=== PATIENT | male | born 1960 | race Caucasian/White ===

== ENCOUNTER 2020-04-25 00:23 | Inpatient (IN) | payer BC, OTHER ==
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
--- OUTSIDE RECORDS SUMMARY | 2020-04-25 00:27 | XMS REPORT | Continuity of Care Document ---
:1960 Author Organization [facility] Care Team Providers Name Role Phone [place] Group Information [place] [employer] Unavailable Un available Problems Problem Status Onset Classification Date Comments Sourc e Date Reported Coronary Active 09/27[facility]2012 [facility] Artery Disease Aftercare Active 09/27[facility]2012 [facility] Following Surgery Non-Healing Active 09/27/2012 [facility] Surgical Wound Medications Medication Details Route Status Patient Ordering Order Source Instructions Provider Date Lipitor 20 MG (Active) Active [facility] Prinivil 10 (Active) Active [facility] Tablet Plavix 75 MG (Active) Active [facility] Aspirin 81 MG (Active) Active [facility] Lopressor 50 (Active) Active [facility] Tablet Dulcolax (Active) Active [facility] Stool [facility] Softener CAPS Hiram 5-325 (Active) Active [facility] Tablet Allergies, Adverse Reactions, Alerts No Known Medication Allergies Immunizations No Data Provided for This Section Results No Data Provided for This Section Pathology Reports No Data Provided for This Section Diagnostic Reports No Data Provided for This Section Consultation Notes No Data Provided for This Section Discharge Summaries No Data Provided for This Section History and Physicals No Data Provided for This Section Vital Signs No Data Provided for This Section Encounters Location Location Encounter Encounter Reason Attending ADM PR Stat Source Details Type Number For Provider Date Date Visit AUDIT [id number] 09/22 [facility]icians AUDIT [id number] 09/26 [facility] Procedures No Data Provided for This Section Assessment and Plan No Data Provided for This Section Plan of Care No Data Provided for This Section Social History Social History Date Source Former Smoker (V15.82); 09/27/2012 [facility] (Active) Being A Social Drinker (Active) Family History No Data Provided for This Section Advance Directives Order Name Results Value Date Source Advance Directives Advance Directives No Advance 09/27/2012 [facility] Directives available. Advance Directives Advance Directives No Advance 09/23/2012 [facility] Directives available. Functional Status No Data Provided for This Section
--- OUTSIDE RECORDS SUMMARY | 2020-04-25 00:27 | XMS REPORT | Continuity of Care Document ---
:1960 Author Organization [facility] Address [address] [place] [address] Care Team Providers Name Role Phone Mayra MARTINEZ, Tino Primary Care Physician Adolfo Sutherland MD Attending Clinician Austin MARTINEZ Attending Clinician Payers Payer Name Policy Type Policy Effective Date Expiration Date Sour ce Number [facility] [id number] 2019 [place] CHO[place] 00:00:00 Religion EXCHANGECOM [facility] EXCHANGE MARKETPLACExxxxxx [id number] esentExchange Problems Condition Condition Condition Status Onset Resolution Last Treating Co mments Source Name Details Category Date Date Treatment Clinician Date Essential Essential Disease Active Kellen ston hypertensi hypertensi 6-26 Me thodi on on 00:00: st 00 Ileostomy Ileostomy Disease Active 2016-06 Kellen ston status status 0-25 Methodi 00:00: st 00 Diverticul Diverticul Disease Active [place] itis of itis of 9-19 Methodi colon colon 00:00: st 00 Coronary Problem Active 2012-09-27 Mem oria Artery 02:03:03 l Disease Coronary Juanita nn Artery Disease Active 3 [facility] Aftercare Problem Active 2012-09-27 Me moria Following 02:03:03 l Surgery Prabhjot Aftercare Following Surgery Active 3 [facility] Non-Healin Problem Active 2012-09-27 M emoria g Surgical 02:03:03 l Wound [place] Non-Healin g Surgical Wound Active 3 [facility] Allergies, Adverse Reactions, Alerts This patient has no known allergies or adverse reactions. Family History Family Member Diagnosis Comments Start Date Stop Date Source Natural father Hypertension [facility] Religion Natural mother Hypertension [facility] Social History Social Habit Start Date Stop Date Quantity Comments Source History of tobacco Current smoker Jordan talbot Religion use Sex Assigned At [facility] ethodist Cigarettes smoked 2017-05-25 2017-05-25 [facility] Religion current (pack per 00:00:00 00:00:00 day) - Reported Cigarette 2017-05-25 2017-05-25 Lilly Method ist pack-years 00:00:00 00:00:00 Tobacco use and 2017-05-25 2017-05-25 Never used [facility] ethodist exposure 00:00:00 00:00:00 Alcohol intake 2017-05-25 2017-05-25 Current drinker [place] Religion 00:00:00 00:00:00 of alcohol (finding) Alcohol Comment 2017-03-12 2017-03-12 social [facility] ethodist 00:00:00 00:00:00 Social History 2012-09-27 2012-09-27 [facility] 02:03:03 02:03:03 Smoking Status Start Date Stop Date Source Former smoker 2017-05-25 00:00:00 2017-05-25 00:00:00 [facility] Medications Ordered Filled Start Stop Current Ordering Indication Dosage Frequency Signature Comments Components Source Medication Medication Date Date Medication? Clinician (SIG) Name Name lisinopril 2016-06 Yes 20mg QD Take 20 mg [place] (PRINIVIL,Z 0-27 by mouth Meth yvonne ESTRIL) 10 15:54: every st mg tablet 01 morning. metoprolol 2016-06 Yes 50mg QD Take 50 mg [place] tartrate 0-27 by mouth Methodi (LOPRESSOR) 15:54: every st 50 mg 01 morning. tablet atorvastati 2016-06 Yes 20mg QD Take 20 mg Da Silva n (LIPITOR) 0-27 by mouth Meth yvonne 20 MG 15:54: every st tablet 01 morning. Default OP ins aspirin 2016-06 Yes 81mg QD Take 81 mg [place] (ECOTRIN) 0-27 by mouth Method i 81 MG 15:54: daily. st enteric 01 coated tablet omeprazole 2016-06 Yes 20mg Q24H Take 20 mg [place] (PriLOSEC) 0-27 by mouth Metho di 20 MG 15:54: daily as st capsule 01 needed. Lipitor 20 Yes (Active) Me moria MG Oral 4-02 l Tablet 02:03: Prabhjot 03 Prinivil 10 Yes (Active) M emoria MG Oral 4-02 l Tablet 02:03: Prabhjot 03 Plavix 75 Yes (Active) Mem oria MG Oral 4-02 l Tablet 02:03: [place] 03 Aspirin 81 Yes (Active) Me moria MG Oral 4-02 l Tablet 02:03: Prabhjot 03 Lopressor Yes (Active) Mem oria 50 MG Oral 4-02 l Tablet 02:03: Prabhjot 03 Dulcolax Yes (Active) Ned nichole Stool 4-02 l Softener 02:03: Prabhjot CAPS 03 [place] 5-325 Yes (Active) M emoria MG Oral 4-02 l Tablet 02:03: [place] 03 Immunizations Ordered Immunization Filled Immunization Date Status Commen Source Name Name Pneumococcal 2017-03-24 Completed [facility] Conjugate 13-Valent 00:00:00 Metho dist FLUCELVAX QUAD PF 2017-03-24 Completed Lilly 00:00:00 Religion Procedures This patient has no known procedures. Plan of Care Planned Activity Planned Date Details Comments Source Future Scheduled 2020-01-27 INFLUENZA VACCINE [place] Religion Test 00:00:00 [code = INFLUENZA VACCINE] Future Scheduled 2009 [address]OS[address]EN[address] [facility] Religion Test 00:00:00 [code = COLONOSCOPY SCREENING] Future Scheduled 2009 SHINGLES VACCINES [place] Religion Test 00:00:00 (#1) [code = SHINGLES VACCINES (#1)] Encounters Start End Encounter Admission Attending Care Care Encounter Source Date/Time Date/Time Type Type Clinicians Facility Department ID 2019-02-01 2019-02-01 Office SOWMYA Avila [id number] 11:08:00 11:56:32 Visit Kareem Chapman [id number] Ezequiel [id number] Anna [id number] formerly [facility] 2012-09-26 2012-09-26 Outpatient KORY HORN [id number] 21:03:21 21:03:03 2012-09-22 2012-09-22 Outpatient [facility] [id number] 21:26:12 21:25:54 Results This patient has no known results.
[2020-04-25] MEDS ORDERED: HEPARIN 5000 UNIT/ML 1 ML VIAL ONE ×4 (01:08→14:35)
[2020-04-25] MEDS ORDERED: NA CHLORIDE 0.9% 1,000 ML ONE ×3 (01:08→14:52)
[2020-04-25] MEDS ORDERED: HEPARIN/D5W 25,000 UNIT/500 ML BAG IV ONE (01:09)
[2020-04-25] MEDS ORDERED: ASPIRIN 81 MG CHEWABLE TABLET ONE (01:10)
[2020-04-25] MEDS ORDERED: METOPROLOL TARTRATE 5 MG/5 ML INJ IV ONE ×2 (01:16→01:37)
[2020-04-25 01:17] LABS: Protime INR 0.96
[2020-04-25 01:23] LABS: Absolute Lymphocytes (CBC) 3.2 K/uL (0.7-4.9); Basophils % 1.2 % (0-1.3); Hematocrit 41.9 % (39.6-49.0); Lymphocytes % 31.5 % (15.3-44.8); MPV 8.6 fL (7.6-11.3); RBC Red Blood Cell Count 5.02 M/uL (4.33-5.43)
[2020-04-25 01:26] LABS: ALT/SGPT 29 U/L (12-78); AST/SGOT 21 U/L (15-37); Albumin 3.7 g/dL (3.4-5.0); Alkaline Phosphatase 77 U/L (45-117); BUN Blood Urea Nitrogen 21 mg/dL (7-18); Bicarbonate 26 mmol/L (21-32); Bilirubin Direct < 0.1 mg/dL (0-0.2); Bilirubin Total 0.2 mg/dL (0.2-1.0); Glucose Level 162 mg/dL (74-106); Magnesium 1.9 mg/dL (1.8-2.4); NT PRO-BNP 403 pg/mL (<125); Potassium 3.5 mmol/L (3.5-5.1); Protein, Total 7.9 g/dL (6.4-8.2); Sodium Level 136 mmol/L (136-145); Troponin (Emerg Dept Use Only) 0.79 ng/mL (0.0-0.045)
--- NOTE | 2020-04-25 01:35 | EDPHYS ---
Physician Documentation [facility] Name: Nixon Dela Cruz Age: 59 yrs Sex: Male : 1960 Arrival Date: 04/25/2020 Time: 00:26 Bed 5 Private MD: ED Physician Adeel Oliveira HPI: 04/25 01:21 This 59 yrs old Male presents to ER via Ambulatory with complaints of Chest pkl Pain, High Blood Pressure. 01:21 The patient or guardian reports chest pain that is located primarily in the substernal pkl area. Onset: today, 6 hour(s) ago. The pain radiates to back. Associated signs and symptoms: Pertinent positives: diaphoresis, shortness of breath. The chest pain is described as a pressure. Historical: - Allergies: 00:40 No Known Allergies; rv - PMHx: 00:40 abdominal aortic aneurysm; Diabetes - NIDDM; Diverticulitis; Hypertension; rv - PSHx: 00:40 CABG; Cholecystectomy; rv - Immunization history:: Adult Immunizations up to date. - Social history:: Smoking status: Patient denies any tobacco usage or history of. Patient uses street drugs, marijuana. ROS: 01:21 Eyes: Negative for injury, pain, redness, and discharge, ENT: Negative for injury, pkl pain, and discharge, Neck: Negative for injury, pain, and swelling. 01:21 Cardiovascular: Positive for chest pain, palpitations. 01:21 Respiratory: Positive for shortness of breath. 01:21 Abdomen/GI: Negative for abdominal pain, nausea, vomiting, and diarrhea. 01:21 Back: Negative for pain at rest. 01:21 : Negative for urinary symptoms. 01:21 MS/extremity: Negative for acute changes. 01:21 Skin: Positive for diaphoresis. 01:21 Neuro: Negative for altered mental status, loss of consciousness. Exam: 01:21 Head/Face: Normocephalic, atraumatic. Eyes: Pupils equal round and reactive to light, pkl extra-ocular motions intact. Lids and lashes normal. Conjunctiva and sclera are non-icteric and not injected. Cornea within normal limits. Periorbital areas with no swelling, redness, or edema. ENT: Nares patent. No nasal discharge, no septal abnormalities noted. Tympanic membranes are normal and external auditory canals are clear. Oropharynx with no redness, swelling, or masses, exudates, or evidence of obstruction, uvula midline. Mucous membranes moist. Neck: Trachea midline, no thyromegaly or masses palpated, and no cervical lymphadenopathy. Supple, full range of motion without nuchal rigidity, or vertebral point tenderness. No Meningismus. Chest/axilla: Normal chest wall appearance and motion. Nontender with no deformity. No lesions are appreciated. 01:21 Cardiovascular: Rate: tachycardic, actual rate is 131 bpm, Rhythm: irregularly irregular. 01:21 ECG was reviewed by the Attending Physician. 01:21 Respiratory: the patient does not display signs of respiratory distress, Respirations: normal, Breath sounds: are clear throughout. 01:21 Abdomen/GI: Bowel sounds: normal, Palpation: abdomen is soft and non-tender, in all quadrants. 01:21 Back: Exam negative for acute changes. 01:21 : Exam negative for acute changes. 01:21 Musculoskeletal/extremity: Exam is negative for acute changes. 01:21 Skin: Exam negative for rash. 01:21 Neuro: Orientation: is normal, Mentation: is normal, Cranial nerves: grossly normal, Motor: is normal. Vital Signs: 00:37 BP 134 / 87; Pulse 136; Resp 18; Pulse Ox 99% ; Weight 108.86 kg; Height 6 ft. (182.88 rv cm); Pain 5/10; 00:52 Temp 98.1(O); Weight 112.31 kg (M); rv 01:10 BP 111 / 92; Pulse 124; Resp 18; Pulse Ox 98% on R/A; rv 01:20 BP 111 / 90; Pulse 60; Resp 17; Pulse Ox 99% on R/A; rv 01:23 BP 108 / 76; Pulse 137; Resp 18; Pulse Ox 97% on R/A; rv 02:00 BP 121 / 82; Pulse 101 MON; Resp 17; Pulse Ox 98% on R/A; rv 02:20 BP 109 / 79; Pulse 100; Resp 17; Pulse Ox 98% on R/A; rv 02:40 BP 122 / 88; Pulse 101; Resp 17; Temp 98; Pulse Ox 99% on R/A; rv 03:23 BP 107 / 86; Pulse 100; Resp 18; Pulse Ox 98% ; rv 00:52 Body Mass Index 33.58 (112.31 kg, 182.88 cm) rv 02:00 A fib rv 02:20 A fib rv 02:40 A fib rv MDM: 00:27 Patient medically screened. pkl 01:21 Data reviewed: vital signs, nurses notes, lab test result(s), EKG, radiologic studies, pkl plain films. 01:30 ED course: Patient feeling better. No chest pain at this time. Talked to arthur Trejo admit to ICU ( Dr. Rutherford ). 04/25 00:51 Order name: Basic Metabolic Panel; Complete Time: : rv 04/25 00:51 Order name: CBC with Diff; Complete Time: rv 04/25 00:51 Order name: LFT's; Complete Time: rv 04/25 00:51 Order name: Magnesium; Complete Time: rv 04/25 00:51 Order name: NT PRO-BNP; Complete Time: rv 04/25 00:51 Order name: PT-INR; Complete Time: rv 04/25 00:51 Order name: Troponin (emerg Dept Use Only); Complete Time: rv 04/25 00:51 Order name: XRAY Chest (1 view) rv 04/25 01:12 Order name: PTT, Activated Partial Thromb; Complete Time: EDMS 04/25 01:21 Order name: Glucose, Ancillary Testing; Complete Time: EDMS 04/25 02:57 Order name: SARS-COV-2 RT PCR; Complete Time: 03:00 EDMS 04/25 00:51 Order name: EKG; Complete Time: 00:52 rv 04/25 00:51 Order name: Cardiac monitoring; Complete Time: 00:51 rv 04/25 00:51 Order name: EKG - Nurse/Tech; Complete Time: 00:52 rv 04/25 00:51 Order name: IV Saline Lock; Complete Time: 00:52 rv 04/25 00:51 Order name: Labs collected and sent; Complete Time: 00:52 rv 04/25 00:51 Order name: O2 Per Protocol; Complete Time: 00:52 rv 04/25 00:51 Order name: O2 Sat Monitoring; Complete Time: 00:52 rv Administered Medications: 00:55 Drug: Heparin (MS Drip) 12 units/kg/hr - (HEParin 23904 units, D5W 500 ml) rv {Co-Signature: sg (Leo Cruz RN).} Route: IV; Rate: calculated rate; Site: right antecubital; 02:57 Follow up: IV Status: Infusion continued upon admission rv 00:55 Drug: Heparin (MS-Bolus No thrombolytic) - HEParin 60 units/kg {Co-Signature: tamika rv (Leo Cruz RN).} Route: IVP; Site: right antecubital; 02:57 Follow up: Response: No adverse reaction rv 00:55 Drug: Aspirin Chewable Tablet 162 mg Route: PO; bb 02:57 Follow up: Response: No adverse reaction rv 01:00 Drug: Metoprolol 5 mg Route: IVP; Site: right antecubital; rv 01:10 Drug: Metoprolol 5 mg Route: IVP; Site: right antecubital; rv 01:25 Drug: Metoprolol 5 mg Route: IVP; Site: left antecubital; rv 01:47 Follow up: Response: Cardiac rhythm changed rv 02:51 Drug: PlaVIX 300 mg Route: PO; rv 02:57 Follow up: Response: Medication administered at discharge. rv 02:51 Drug: Atorvastatin 40 mg Route: PO; rv 02:57 Follow up: Response: Medication administered at discharge. rv 02:57 Drug: NS 0.9% 500 ml Route: IV; Rate: bolus; Site: right antecubital; rv 02:57 Follow up: IV Status: Infusion continued upon admission rv Disposition: 01:30 Critical Care:. [facility] Disposition: 04/25/20 01:34 Hospitalization ordered by Bert Rutherford for Inpatient Admission. Preliminary diagnosis is Acute M. I. Atrial fibrillation with RVR. - Bed requested for Intensive Care Unit. - Status is Inpatient Admission. rv - Condition is Stable. - Problem is new. - Symptoms have improved. Signatures: Dispatcher [employer] Leo Bella RN RN sg Lam, Pin, MD MD pkl Ballard, Brenda, RN RN Arya Vasquez, LOAN COUNSELOR-C LOAN COUNSELOR-Cla1 Harsh Arreguin RN RN rv Leo Cruz RN sg Corrections: (The following items were deleted from the chart) 01:11 00:57 PTT, ACTIVATED+COAG.LAB.BRZ ordered. EDMS EDMS 01:32 01:09 CORONAVIRUS+MR.LAB.BRZ ordered. EDMS EDMS 03:24 01:34 Hospitalization Ordered by Bert Rutherford DO for Inpatient Admission. Preliminary rv diagnosis is Acute M. I. Atrial fibrillation with RVR. Bed requested for Intensive Care Unit. Status is Inpatient Admission. Condition is Stable. Problem is new. Symptoms have improved. pkl
--- NOTE | 2020-04-25 01:35 | ER ---
Nurse's Notes [facility] Name: Nixon Dela Cruz Age: 59 yrs Sex: Male : 1960 Arrival Date: 04/25/2020 Time: 00:26 Bed 5 Private MD: Diagnosis: Acute M. I. Atrial fibrillation with RVR Presentation: 04/25 00:37 Chief complaint: Patient states: CHEST PAIN STARTED AT ABOUT 530 AFTER EATING. WITH rv SOB. DESCRIBED IT TIGHTNESS, 5/10 PAIN SCALE, CONTINUOUS, WHICH RADIATES TO THE BACK. WITH HISTORY OF FEVER TWO DAYS BEFORE. Coronavirus screen: Client denies travel out of the [place] in the last 14 days. nausea, shortness of breath, Client presents with at least one sign or symptom that may indicate coronavirus-19. Standard/surgical mask placed on the client. Provider contacted for isolation considerations. Ebola Screen: No symptoms or risks identified at this time. Initial Sepsis Screen: Does the patient meet any 2 criteria? No. Patient's initial sepsis screen is negative. Does the patient have a suspected source of infection? No. Patient's initial sepsis screen is negative. Risk Assessment: Do you want to hurt yourself or someone else? Patient reports no desire to harm self or others. Onset of symptoms was April 24, 2020 at 17:30. 00:37 Method Of Arrival: Ambulatory rv 00:37 Acuity: SNEHA 2 rv Triage Assessment: 00:40 General: Appears uncomfortable, Behavior is calm, cooperative. Pain: Complains of pain rv in chest Pain radiates to back. EENT: No signs and/or symptoms were reported regarding the EENT system. Neuro: Level of Consciousness is awake, alert, obeys commands, Oriented to person, place, time, situation. Cardiovascular: Reports chest pain, nausea, palpitations, Patient's skin is warm and dry. Rhythm is sinus tachycardia Chest pain is described as mild, quality is TIGHTNESS is located in anterior chest wall radiates back began 1730. Respiratory: Airway is patent Respiratory effort is even, unlabored, Breath sounds are clear bilaterally. Derm: Skin is intact. Historical: - Allergies: 00:40 No Known Allergies; rv - PMHx: 00:40 abdominal aortic aneurysm; Diabetes - NIDDM; Diverticulitis; Hypertension; rv - PSHx: 00:40 CABG; Cholecystectomy; rv - Immunization history:: Adult Immunizations up to date. - Social history:: Smoking status: Patient denies any tobacco usage or history of. Patient uses street drugs, marijuana. Screenin:43 Abuse screen: Denies threats or abuse. Denies injuries from another. Nutritional rv screening: No deficits noted. Tuberculosis screening: No symptoms or risk factors identified. Fall Risk None identified. Assessment: 00:43 Pain: Pain began 1730. rv 01:43 Reassessment: chest pain is resolving. rhythm converts to sinus laisha after three doses rv of lopressor. series of EKG done as ordered. General: Appears comfortable, Behavior is calm, cooperative. Pain: Denies pain. Pain: Complains of pain in chest. Pain: Pain radiates to back. Neuro: Level of Consciousness is awake, alert, obeys commands, Oriented to person, place, time, situation. Cardiovascular: Rhythm is sinus bradycardia with unifocal PVCs. 01:44 Reassessment: Patient appears in no apparent distress at this time. Patient is alert, sg oriented x 3, equal unlabored respirations, skin warm/dry/pink. Arya FILLER SHREDDING MACHINE LOADER at bedside assessing pt for admission at this time Patient denies pain at this time. Patient states feeling better. Patient states symptoms have improved. Vital Signs: 00:37 BP 134 / 87; Pulse 136; Resp 18; Pulse Ox 99% ; Weight 108.86 kg; Height 6 ft. (182.88 rv cm); Pain 5/10; 00:52 Temp 98.1(O); Weight 112.31 kg (M); rv 01:10 BP 111 / 92; Pulse 124; Resp 18; Pulse Ox 98% on R/A; rv 01:20 BP 111 / 90; Pulse 60; Resp 17; Pulse Ox 99% on R/A; rv 01:23 BP 108 / 76; Pulse 137; Resp 18; Pulse Ox 97% on R/A; rv 02:00 BP 121 / 82; Pulse 101 MON; Resp 17; Pulse Ox 98% on R/A; rv 02:20 BP 109 / 79; Pulse 100; Resp 17; Pulse Ox 98% on R/A; rv 02:40 BP 122 / 88; Pulse 101; Resp 17; Temp 98; Pulse Ox 99% on R/A; rv 03:23 BP 107 / 86; Pulse 100; Resp 18; Pulse Ox 98% ; rv 00:52 Body Mass Index 33.58 (112.31 kg, 182.88 cm) rv 02:00 A fib rv 02:20 A fib rv 02:40 A fib rv ED Course: 00:26 Patient arrived in ED. cl3 00:27 Harsh Arreguin, KELLY is Primary Nurse. rv 00:27 Adeel Oliveira MD is Attending Physician. pkl 00:39 Triage completed. rv 00:40 Initial lab(s) drawn, by me, sent to lab. Inserted saline lock: 18 gauge in right sg antecubital area, using aseptic technique. Blood collected. 00:42 Arm band placed on right wrist. Patient placed in the treatment room, on a stretcher, rv Patient notified of wait time. 00:42 No provider procedures requiring assistance completed. Patient maintains SpO2 rv saturation greater than 95% on room air. 00:43 Patient has correct armband on for positive identification. Bed in low position. Call rv light in reach. Side rails up X 1. certified nurse on. Pulse ox on. NIBP on. 00:46 Called cardiology answering service. Waiting for donor services specialist planning assistant to call back. ar5 01:09 Missed attempt(s): 20 gauge in left antecubital area. Bleeding controlled, band aid sg applied, catheter tip intact. Missed attempt(s): 20 gauge in left wrist. Bleeding controlled, band aid applied, catheter tip intact. 01:15 Inserted saline lock: 18 gauge in left antecubital area, using aseptic technique. rv 01:[address] Oliveira to call cardiology answering service and cancel consult to planning assistant. ar5 01:26 Notified ED physician of a critical lab result(s). troponin of 0.79 Dr Oliveira notified. bb 01:30 COVID swab sent to lab, Sandro notified for Inhouse test due to pt pending sg transfer/admission dispo, will continue to monitor. 01:33 Bert Rutherford DO is Hospitalizing Provider. pkl 03:00 IV is patent, with fluids infusing freely, Patient admitted, IV remains in place. rv Administered Medications: 00:55 Drug: Heparin (NE Drip) 12 units/kg/hr - (HEParin 66031 units, D5W 500 ml) rv {Co-Signature: sg (Leo Cruz RN).} Route: IV; Rate: calculated rate; Site: right antecubital; 02:57 Follow up: IV Status: Infusion continued upon admission rv 00:55 Drug: Heparin (NE-Bolus No thrombolytic) - HEParin 60 units/kg {Co-Signature: tamika rv (Leo Cruz RN).} Route: IVP; Site: right antecubital; 02:57 Follow up: Response: No adverse reaction rv 00:55 Drug: Aspirin Chewable Tablet 162 mg Route: PO; bb 02:57 Follow up: Response: No adverse reaction rv 01:00 Drug: Metoprolol 5 mg Route: IVP; Site: right antecubital; rv 01:10 Drug: Metoprolol 5 mg Route: IVP; Site: right antecubital; rv 01:25 Drug: Metoprolol 5 mg Route: IVP; Site: left antecubital; rv 01:47 Follow up: Response: Cardiac rhythm changed rv 02:51 Drug: PlaVIX 300 mg Route: PO; rv 02:57 Follow up: Response: Medication administered at discharge. rv 02:51 Drug: Atorvastatin 40 mg Route: PO; rv 02:57 Follow up: Response: Medication administered at discharge. rv 02:57 Drug: NS 0.9% 500 ml Route: IV; Rate: bolus; Site: right antecubital; rv 02:57 Follow up: IV Status: Infusion continued upon admission rv Outcome: 01:34 Decision to Hospitalize by Provider. pkl 03:00 Admitted to ICU accompanied by nurse, via stretcher, room bed 9 ER ICU, Other SBAR, EKG rv 03:00 Condition: good 03:00 Instructed on the need for admit. 03:24 Patient left the ED. rv Signatures: Leo Cruz RN RN sg Adeel Oliveira MD MD pkl Sandra Zamora RN RN bb Harsh Arreguin RN RN rv Razia Rehman ar5 Sabiha Pastor cl3 Leo Cruz RN sg Corrections: (The following items were deleted from the chart) 01:43 00:43 Pain: Pain began 173 rv rv
[2020-04-25] MEDS ORDERED: CLOPIDOGREL 75 MG TABLET ONE ×3 (03:01→14:05)
[2020-04-25] MEDS ORDERED: HEPARIN/D5W 25,000 UNIT/500 ML BAG IV SCH (03:03)
[2020-04-25] MEDS ORDERED: NITROGLYCERIN 0.4 MG/TAB SL PRN (03:03)
[2020-04-25] MEDS ORDERED: ACETAMINOPHEN 500 MG TAB PO PRN (03:03)
[2020-04-25] MEDS ORDERED: MORPHINE 2 MG/ML SYR IV PRN (03:03)
[2020-04-25] MEDS: NA CHLORIDE 0.9% 1,000 ML IV SCH ×2 (03:03→13:03)
[2020-04-25] MEDS ORDERED: ONDANSETRON 4 MG/2 ML VIAL IV PRN (03:03)
[2020-04-25] MEDS ORDERED: ATORVASTATIN 20 MG TAB ONE (03:05)
--- NOTE | 2020-04-25 03:09 | P.HP ---
Certification for Inpatient Patient admitted to: Inpatient With expected LOS: >2 Midnights Patient will require the following post-hospital care: None Practitioner: I am a practitioner with admitting privileges, knowledge of patient current condition, hospital course, and medical plan of care. Services: Services provided to patient in accordance with Admission requirements found in Title 42 Section 412.3 of the Code of Federal Regulations <Arya Keller - Last Filed: 04/25/20 03:02> Patient History Date of Service: 04/25/20 Primary Care Provider: Cardiology- Allie Reason for admission: NSTEMI History of Present Illness: 59-year-old male with history of aortic aneurysm with repair, coronary artery disease s/p three-vessel CABG in 2012, diabetes mellitus type 2, hypertension, hyperlipidemia, depression with anxiety presents emergency department for chest pain. Patient reports he has been having intermittent chest pain associated with exertion over the course of the last few years. Patient reports that after eating dinner at around 6:00 p.m. last night patient had significant chest tightness radiating to the back with associated diaphoresis, nausea, shortness of breath. Patient reports that this pain lasted for approximately 30 min at this severity but did begin to taper off. Upon presentation to the emergency department patient was still experiencing some mild chest pain with shortness of breath even just walking to the ER doors. Initial EKG showed AFib RVR with a rate of 138. Patient was given metoprolol 5 mg IV x3 which did control the rate, patient is still in AFib with a rate of around 100. Repeat EKG shows no acute ST elevation. Initial troponin 0.79. Labs also remarkable for mild a KI with creatinine 1.38, GFR 53, BUN 21. BNP also elevated at 403. Patient was started on heparin drip with bolus for AMI and given aspirin. When I saw the patient in the emergency department he was awake, alert, oriented x3. Heart rate AFib intermittently labile anywhere from 130 to AFib slow ventricular response with a rate of around 40. Patient is chest pain-free at this time. Hospitalist attending and cardiology spoken with regarding patient. Cardiology once patient on clear liquid diet for likely afternoon intervention and loaded with 300 mg Plavix p.o.. Patient was admitted to the intensive care unit for close monitoring overnight. - Past Medical/Surgical History Has patient received pneumonia vaccine in the past: No Diabetic: Yes -: CAD s/p three-vessel CABG -: Aortic aneurysm with repair -: Diabetes mellitus type 2 -: Hyperlipidemia -: Hypertension -: Aortic aneurysm repair with mesh -: Three-vessel CABG -: Right shoulder surgery Psychosocial/ Personal History: Patient lives with his - Family History Father -: Heart disease Notes: Reported to have had 26 myocardial infarction starting at the age of 29 - Social History Smoking Status: Former smoker Alcohol use: Yes CD- Drugs: No Caffeine use: Yes Place of Residence: Home <Arya Keller - Last Filed: 04/25/20 03:02> Date of Service: 04/25/20 Home medications list reviewed: Yes <Bert Rutherford - Last Filed: 04/25/20 09:25> Allergies No Known Allergies Allergy (Verified 04/25/20 04:49) Review of Systems 10-point ROS is otherwise unremarkable Respiratory: SOB with Excertion Cardiovascular: Chest Pain, Other (Diaphoresis), As per HPI <Arya Keller - Last Filed: 04/25/20 03:02> Physical Examination - Physical Exam General: Alert, In no apparent distress HEENT: Atraumatic, PERRLA, Mucous membr. moist/pink Neck: Supple, 2+ carotid pulse no bruit, No LAD Respiratory: Clear to auscultation bilaterally, Normal air movement Cardiovascular: Regular rate/rhythm, Normal S1 S2 Gastrointestinal: Normal bowel sounds, No tenderness Musculoskeletal: No tenderness Integumentary: No rashes Neurological: Normal speech, Normal strength at 5/5 x4 extr, Normal tone, Normal affect - Studies Laboratory Data (last 24 hrs) 04/25/20 00:56: APTT Cancelled 04/25/20 00:40: PT 11.3, INR 0.96, APTT 32.5 04/25/20 00:40: WBC 10.2, Hgb 14.4, Hct 41.9, Plt Count 343 04/25/20 00:40: Sodium 136, Potassium 3.5, BUN 21 H, Creatinine 1.38 H, Glucose 162 H, Magnesium 1.9, Total Bilirubin 0.2, AST 21, ALT 29, Alkaline Phosphatase 77 <Arya Keller - Last Filed: 04/25/20 03:02> - Studies Laboratory Data (last 24 hrs) 04/25/20 00:56: APTT Cancelled 10/29/20 00:40: PT 11.3, INR 0.96, APTT 32.5 04/25/20 00:40: WBC 10.2, Hgb 14.4, Hct 41.9, Plt Count 343 04/25/20 00:40: Sodium 136, Potassium 3.5, BUN 21 H, Creatinine 1.38 H, Glucose 162 H, Magnesium 1.9, Total Bilirubin 0.2, AST 21, ALT 29, Alkaline Phosphatase 77 <Bert Rutherford - Last Filed: 04/25/20 09:25> Assessment and Plan - Plan Assessment Non ST elevation myocardial infarction New onset atrial fibrillation with rapid ventricular response Diabetes mellitus type 2 Hypertension Hyperlipidemia Coronary artery disease s/p three-vessel CABG Plan Non ST elevation myocardial infarction: Cardiology consulted and patient discussed. Continue with heparin drip, aspirin, Plavix, atorvastatin, beta- livia, p.r.n. nitro and morphine. Plan for PCI this afternoon, clear liquid diet at this time. Lipid panel with morning. Monitor on telemetry, admitted to the intensive care unit. New onset atrial fibrillation with rapid ventricular response: Likely related to above, continue with oral beta livia, monitor on telemetry. P.r.n. IV metoprolol for rate control. Echocardiogram ordered. Appreciate further input from cardiology. Patient on heparin drip for anticoagulation. Thyroid panel ordered for morning labs. Diabetes mellitus type 2: A.c. HS Accu-Cheks, sliding scale insulin therapy, obtain A1c with morning labs. Hypertension: Patient previously on metoprolol and stopped taking, re-initiate beta-livia therapy, obtain and continue home medications as appropriate. Hyperlipidemia: Patient stopped taking his atorvastatin, re-initiate statin therapy. Lipid panel with morning labs. Coronary artery disease s/p three-vessel CABG: Patient previously on Plavix, this was discontinued. Patient now back on Plavix at this time. Plan for PCI tomorrow. Discharge Plan: Home Plan to discharge in: 48 Hours - Advance Directives Does patient have a Living Will: No Does patient have a Durable POA for Healthcare: No - Code Status/Comfort Care Code Status Assessed: Yes (Full code) Critical Care: No Time Spent Managing Pts Care (In Minutes): 70 <Arya Keller - Last Filed: 04/25/20 03:02> - Plan Case discussed in detail with nurse practitioner. Agree with evaluation, and plan of care. Case discussed with cardiology. Cardiology plans for heart catheterization today to further evaluate. Patient converted to normal sinus rhythm early this morning. Continue with beta-livia therapy. Patient on heparin drip at this time. Please see progress note for details. <Bert Rutherford - Last Filed: 04/25/20 09:25>
[2020-04-25 04:13] VITALS: BMI 33.5
[2020-04-25] MEDS: METOPROLOL TAR 25 MG TAB PO SCH ×2 (05:37→18:16)
[2020-04-25 06:06] LABS: Absolute Lymphocytes (CBC) 3.7 K/uL (0.7-4.9); Basophils % 2.8 % (0-1.3); Lymphocytes % 39.1 % (15.3-44.8); MPV 8.7 fL (7.6-11.3)
[2020-04-25 06:16] LABS: Albumin 3.2 g/dL (3.4-5.0); Bilirubin Total 0.2 mg/dL (0.2-1.0); CKMB Creatine Kinase MB 5.5 ng/mL (0.3-3.6); Magnesium 1.9 mg/dL (1.8-2.4); Potassium 3.5 mmol/L (3.5-5.1); Protein, Total 7.1 g/dL (6.4-8.2)
[2020-04-25 06:17] LABS: Troponin I 1.14 ng/mL (0.0-0.045)
[2020-04-25] MEDS ORDERED: POTASSIUM CL SA 10 MEQ TAB PO ONE ×2 (07:08→07:30)
[2020-04-25] MEDS: INSULIN -REGULAR HUMAN 50 UNIT/0.5 ML ML SQ SCH ×4 (07:30→20:21)
--- NOTE | 2020-04-25 07:41 | RAD REPORT ---
EXAM DESCRIPTION: Ruby Single View04/25/2020 3:04 am CLINICAL HISTORY: Chest pain COMPARISON: 2017 FINDINGS: The lungs appear clear of acute infiltrate. The heart is mildly enlarged. Postsurgical changes involve the chest. Haziness involving left base likely related to epicardial fat IMPRESSION: No acute abnormalities displayed
[2020-04-25] MEDS: ASPIRIN EC 81 MG TAB PO SCH ×2 (09:00→10:21)
[2020-04-25] MEDS ORDERED: FAMOTIDINE 20 MG/2 ML VIAL IV SCH (09:00)
--- NOTE | 2020-04-25 09:31 | P.PN ---
Subjective Date of Service: 04/25/20 Primary Care Provider[facility] Chief Complaint: NSTEMI Subjective: Improving, Doing well (Patient feel much improved. Patient now in sinus rhythm.) Physical Examination - Vital Signs Temperature: 98.7 F Blood Pressure: 177/71 Pulse: 73 Respirations: 16 Pulse Ox (%): 97 - Physical Exam General: Alert, In no apparent distress, Oriented x3, Cooperative HEENT: Atraumatic Neck: Supple Respiratory: Clear to auscultation bilaterally, Normal air movement Cardiovascular: Normal pulses, Regular rate/rhythm Gastrointestinal: Normal bowel sounds, Soft and benign, Non-distended Integumentary: No tenderness/swelling, No erythema, No warmth, No cyanosis Neurological: Normal speech, Normal strength at 5/5 x4 extr, Normal tone, Normal affect - Studies Laboratory Data (last 24 hrs) 04/25/20 00:56: APTT Cancelled 04/25/20 00:40: PT 11.3, INR 0.96, APTT 32.5 04/25/20 00:40: WBC 10.2, Hgb 14.4, Hct 41.9, Plt Count 343 04/25/20 00:40: Sodium 136, Potassium 3.5, BUN 21 H, Creatinine 1.38 H, Glucose 162 H, Magnesium 1.9, Total Bilirubin 0.2, AST 21, ALT 29, Alkaline Phosphatase 77 Medications List Reviewed: Yes Assessment & Plan Discharge Plan: Home Plan to discharge in: 48 Hours Physician Review Additional Text: Assessment Chest pain, dyspnea secondary to Non ST elevation myocardial infarction complicated with history of CAD and prior 3 vessel CABG New onset atrial fibrillation with rapid ventricular response Diabetes mellitus type 2 controlled Hypertension Mixed Hyperlipidemia GERD Suspect obstructive sleep apnea Obesity, BMI 33.6 Plan Chest pain, dyspnea secondary to Non ST elevation myocardial infarction complicated with history of CAD and prior 3 vessel CABG: Patient stable this time. Patient now in sinus rhythm metoprolol. Continue heparin drip. Will increase Lipitor and add fish oil. Case discussed with cardiology. Cardiology plans for heart catheterization to further evaluate and treat. Anticipate improvement over the next 48 hr. Await findings and recommendations by Cardiology. New onset atrial fibrillation with rapid ventricular response: Patient in normal sinus rhythm. Patient had not been taking metoprolol in quite some time. Will discuss with cardiology about plan of care. Echocardiogram pending. Patient remains on heparin drip. Diabetes mellitus type 2 controlled: A1c well controlled at 6.2. Hold metformin at this time in preparation for heart catheterization.. Hypertension: Continue metoprolol. Consider restarting lisinopril/hydrochlorothiazide after heart catheterization. Mixed Hyperlipidemia: Increase Lipitor to 80 mg daily. Add fish oil. GERD: Continue home medication Suspect underlying obstructive sleep apnea: Patient may require further evaluation as an outpatient. Obesity, BMI 33.6: Will address lifestyle modification education. Time Spent Managing Pts Care (In Minutes): 55
[2020-04-25] MEDS: CLOPIDOGREL 75 MG TABLET PO SCH (10:17)
[2020-04-25] MEDS ORDERED: ASPIRIN EC 81 MG TAB PO ONE (10:29)
[2020-04-25] MEDS ORDERED: FAMOTIDINE 20 MG/2 ML VIAL IV ONE (10:30)
[2020-04-25] MEDS ORDERED: HEPA 1000U/500MLS 1,000 UNIT/500 ML BAG IV ONE (10:35)
[2020-04-25] MEDS ORDERED: FAMOTIDINE 20 MG TAB ONE (10:37)
[2020-04-25] MEDS ORDERED: PANTOPRAZOLE 40MG TABLET PO ONE (10:45)
[2020-04-25 12:04] LABS: CKMB Creatine Kinase MB 4.8 ng/mL (0.3-3.6)
[2020-04-25 12:05] LABS: Troponin I 0.85 ng/mL (0.0-0.045)
[2020-04-25] MEDS ORDERED: HEPA 1000U/500MLS 2,000 UNIT/1,000 ML BAG IV ONE (12:21)
[2020-04-25] MEDS ORDERED: FENTANYL CITR 100 MCG/2 ML ONE ×2 (12:22→14:47)
[2020-04-25] MEDS ORDERED: MIDAZOLAM HCL 2 MG/2 ML INJ ONE ×2 (12:22→13:10)
[2020-04-25] MEDS ORDERED: ATROPINE SULF 1 MG/10 ML SYR IV ONE (13:03)
[2020-04-25] MEDS ORDERED: LIDOCAINE 1% MPF 30 ML VIAL ONE (13:08)
[2020-04-25] MEDS ORDERED: ACETYLCYST 20% 4 ML VIAL IH ONE (14:35)
[2020-04-25] MEDS ORDERED: MORPHINE 2 MG/ML SYR ONE (15:59)
[2020-04-25] MEDS: DOCOSAHEXANOIC AC/EPA 1000 MG PO SCH (20:18)
[2020-04-25] MEDS ORDERED: ATORVASTATIN 40 MG TAB PO SCH (21:00)
[2020-04-25] MEDS ORDERED: ATORVASTATIN 80 MG TAB PO SCH (21:00)
[2020-04-26 05:46] LABS: Absolute Lymphocytes (CBC) 1.8 K/uL (0.7-4.9); Basophils % 0.6 % (0-1.3); Hematocrit 39.2 % (39.6-49.0); Lymphocytes % 19.4 % (15.3-44.8); MPV 8.1 fL (7.6-11.3); RBC Red Blood Cell Count 4.74 M/uL (4.33-5.43)
[2020-04-26] MEDS: METOPROLOL TAR 25 MG TAB PO SCH (05:51)
[2020-04-26 06:05] LABS: Potassium 4.3 mmol/L (3.5-5.1)
--- NOTE | 2020-04-26 07:06 | P.DS ---
Admission Date: 04/25/20 Discharge Date: 04/26/20 Primary Care Provider: Dr. Nunez, Cardiology- [facility] Disposition: ROUTINE DISCHARGE Discharge Condition: GOOD Reason for Admission: NSTEMI Consultations: Cardiology-Dr. Kay/Dr. Ca Procedures: Heart catheterization: CAD noted. 2 cardiac stents required to the circumflex. Please see heart catheterization report for details. Medical Problem List: Chest pain, dyspnea secondary to Non ST elevation myocardial infarction complicated with history of CAD and prior 3 vessel CABG status post heart catheterization showing significant disease requiring 2 cardiac stents- circumflex artery New onset atrial fibrillation with rapid ventricular response, now in normal sinus rhythm Diabetes mellitus type 2 controlled Hypertension Mixed Hyperlipidemia GERD Suspect obstructive sleep apnea Obesity, BMI 33.6 Brief History of Present Illness: 59-year-old male with history of hypertension, hyperlipidemia, diabetes and CAD with prior CABG. Patient presented with chest pain, nausea and vomiting and diaphoresis. Patient found to have NSTEMI. Patient was admitted for treatment. Hospital Course: Patient presented with chest pain, dyspnea secondary to Non ST elevation myocardial infarction complicated with history of CAD and prior 3 vessel CABG. Patient was admitted to ICU. Patient placed on heparin drip and OR protocol. The patient was seen and evaluated by Cardiology. Cardiology performed heart catheterization showing significant disease. Patient required 2 stents to the circumflex artery. Patient has done well post operatively. No significant chest pain or shortness of breath at discharge. Case discussed in detail with cardiology. At discharge patient will continue with aspirin 81 mg daily, Plavix 75 mg daily, metoprolol 25 mg 1 pill twice daily, lisinopril 5 mg daily, Lipitor 80 mg daily, and fish oil 2000 mg 1 pill twice daily. Patient may need to limit his activity for at least 1-2 weeks. Recommend follow up with cardiology within 1 week. Cardiology will reassess patient at that time and determine when the patient can return back to work and to normal activity. Education on CAD, hypertension, post heart catheterization will be provided. New medications addressed in detail with the patient. Recommend 2000 ADA diet at discharge. Patient also had new onset atrial fibrillation with RVR. This resolved with medication-metoprolol. Patient now in normal sinus rhythm, Patient has done well. Cardiology has evaluated patient. No need for chronic anti coagulation therapy at this time. Cardiology will consider discontinuing aspirin and the possibility of adding chronic anti coagulation therapy in the near future. This can be further addressed by cardiology as an outpatient. Patient will continue with metoprolol 25 mg 1 pill twice daily. Education on atrial fibrillation provided. Patient with diabetes mellitus type 2. This is well controlled. Hemoglobin A1c 6.2. Patient takes Glucophage. Glucophage was held before and after heart cat heterization. Patient may continue with Glucophage 1000 mg 1 pill twice daily after 48 hr. Recommend to maintain blood sugar less than 140 fasting and less than 200 meals. Further adjustment in his medication can be done by his PCP. Patient with mixed hyperlipidemia. LDL 78, HDL 30 and triglycerides 259. Medications have been adjusted. At discharge she will continue with Lipitor 80 mg daily and fish oil 1000 mg 2 pills twice daily. Recommend to recheck fasting lipid panel in 4-6 weeks to reassess his progress. Education on 1999 ADA diet will be provided. Patient with GERD. Patient may continue with his medication-Nexium 40 mg daily. Suspect underlying obstructive sleep apnea. Recommend to establish care with pulmonology to consider sleep study to further evaluate and treat. Information will be provided. Patient with obesity, BMI 33.6. Continue lifestyle modification education. Patient also takes testosterone. This can be further monitored and adjusted by his PCP. This will need to be monitored closely as testosterone can increase blood pressure. Further recommendations can be addressed with cardiology. Vital Signs/Physical Exam: Temp Pulse Resp BP Pulse Ox 98.0 F 70 18 134/74 95 04/26/20 04:00 04/26/20 05:51 04/26/20 04:00 04/26/20 05:51 04/26/20 04:00 General: Alert, In no apparent distress, Oriented x3, Cooperative HEENT: Atraumatic Neck: Supple Respiratory: Clear to auscultation bilaterally, Normal air movement Cardiovascular: Normal pulses, Regular rate/rhythm Gastrointestinal: Normal bowel sounds, Soft and benign, Non-distended, No tenderness, No masses, No rebound, No guarding Musculoskeletal: No erythema, No tenderness, No warmth Integumentary: No tenderness/swelling, No erythema, No warmth, No cyanosis Neurological: Normal speech, Normal strength at 5/5 x4 extr, Normal tone, Normal affect Laboratory Data at Discharge: WBC 9.5 K/uL (4.3-10.9) 04/26/20 05:20 Hgb 13.7 g/dL (13.6-17.9) 04/26/20 05:20 Hct 39.2 % (39.6-49.0) L 04/26/20 05:20 Plt Count 300 K/uL (152-406) 04/26/20 05:20 PT 11.3 SECONDS (9.5-12.5) 04/25/20 00:40 INR 0.96 04/25/20 00:40 APTT 55.4 SECONDS (24.3-36.9) H 04/25/20 10:27 Sodium 137 mmol/L (136-145) 04/26/20 05:20 Potassium 4.3 mmol/L (3.5-5.1) 04/26/20 05:20 BUN 14 mg/dL (7-18) 04/26/20 05:20 Creatinine 1.15 mg/dL (0.55-1.3) 04/26/20 05:20 Glucose 132 mg/dL (74-106) H 04/26/20 05:20 Magnesium 2.0 mg/dL (1.8-2.4) 04/26/20 05:20 Total Bilirubin 0.2 mg/dL (0.2-1.0) 04/25/20 05:19 AST 20 U/L (15-37) 04/25/20 05:19 ALT 27 U/L (12-78) 04/25/20 05:19 Alkaline Phosphatase 76 U/L (45-117) 04/25/20 05:19 Troponin I 0.85 ng/mL (0.0-0.045) H* 04/25/20 10:27 Triglycerides 259 mg/dL (<150) H 04/25/20 05:19 Cholesterol 160 mg/dL (<200) 04/25/20 05:19 HDL Cholesterol 30 mg/dL (40-60) L 04/25/20 05:19 Cholesterol/HDL Ratio 5.33 04/25/20 05:19 Home Medications: Esomeprazole Mag Trihydrate [Nexium] 1 tab PO DAILY 04/25/20 Metformin ER [Glucophage ER*] 1,000 mg PO BID 04/25/20 Testost Cypionate [Depo-Testosterone*] 5 mg IM EVERY 7TH DAY 04/25/20 Aspirin [Aspirin EC 81 MG] 81 mg PO DAILY #90 tablet.dr 04/26/20 Atorvastatin Calcium [Lipitor] 80 mg PO BEDTIME #30 tab 04/26/20 Clopidogrel Bisulfate [Plavix*] 75 mg PO DAILY #30 tablet 04/26/20 Docosahexanoic AC/Epa [Fish Oil 1,000 MG*] 2,000 mg PO BID #120 cap 04/26/20 Metoprolol Tartrate [Lopressor*] 25 mg PO BID 6AM 6PM #60 tab 04/26/20 lisinopriL [Prinivil*] 5 mg PO DAILY #30 tab 04/26/20 New Medications: Aspirin [Aspirin EC 81 MG] 81 mg PO DAILY #90 tablet. Docosahexanoic AC/Epa [Fish Oil 1,000 MG*] 2,000 mg PO BID #120 cap Atorvastatin Calcium [Lipitor] 80 mg PO BEDTIME #30 tab Metoprolol Tartrate [Lopressor*] 25 mg PO BID 6AM 6PM #60 tab Clopidogrel Bisulfate [Plavix*] 75 mg PO DAILY #30 tablet lisinopriL [Prinivil*] 5 mg PO DAILY #30 tab Patient Discharge Instructions: 1. Follow up with PCP in 1 week to follow up this hospitalization. 2. Patient presented with chest pain, dyspnea secondary to Non ST elevation myocardial infarction complicated with history of CAD and prior 3 vessel CABG. Patient was admitted to ICU. Patient placed on heparin drip and OR protocol. The patient was seen and evaluated by Cardiology. Cardiology performed heart catheterization showing significant disease. Patient required 2 stents to the circumflex artery. Patient has done well post operatively. No significant chest pain or shortness of breath at discharge. Case discussed in detail with cardiology. At discharge patient will continue with aspirin 81 mg daily, Plavix 75 mg daily, metoprolol 25 mg 1 pill twice daily, lisinopril 5 mg daily, Lipitor 80 mg daily, and fish oil 2000 mg 1 pill twice daily. Patient may need to limit his activity for at least 1-2 weeks. Recommend follow up with cardiology within 1 week. Cardiology will reassess patient at that time and determine when the patient can return back to work and to normal activity. Education on CAD, hypertension, post heart catheterization will be provided. New medications addressed in detail with the patient. Recommend 2000 ADA diet at discharge. 3. Patient also had new onset atrial fibrillation with RVR. This resolved with medication-metoprolol. Patient now in normal sinus rhythm, Patient has done well. Cardiology has evaluated patient. No need for chronic anti coagulation therapy at this time. Cardiology will consider discontinuing aspirin and the possibility of adding chronic anti coagulation therapy in the near future. This can be further addressed by cardiology as an outpatient. Patient will continue with metoprolol 25 mg 1 pill twice daily. Education on atrial fibrillation provided. 4. Patient with diabetes mellitus type 2. This is well controlled. Hemoglobin A1c 6.2. Patient takes Glucophage. Glucophage was held before and after heart catheterization. Patient may continue with Glucophage 1000 mg 1 pill twice daily after 48 hr. Recommend to maintain blood sugar less than 140 fasting and less than 200 meals. Further adjustment in his medication can be done by his PCP. 5. Patient with mixed hyperlipidemia. LDL 78, HDL 30 and triglycerides 259. Medications have been adjusted. At discharge she will continue with Lipitor 80 mg daily and fish oil 1000 mg 2 pills twice daily. Recommend to recheck fasting lipid panel in 4-6 weeks to reassess his progress. Education on 2000 ADA diet will be provided. 6. Patient with GERD. Patient may continue with his medication- Nexium 40 mg daily. 7. Suspect underlying obstructive sleep apnea. Recommend to establish care with pulmonology to consider sleep study to further evaluate and treat. Information will be provided. 8. Patient with obesity, BMI 33.6. Continue lifestyle modification education. Patient also takes testosterone. This can be further monitored and adjusted by his PCP. This will need to be monitored closely as testosterone can increase blood pressure. Further recommendations can be addressed with cardiology. Diet: ADA Activity: Ad oscar Followup: Jeffrey Nunez MD [Primary Care Provider] - Time spent managing pt's care (in minutes): 55
[2020-04-26 08:51] VITALS: BP 121/73; TEMP 97.7
[2020-04-26] MEDS ORDERED: HOME MED 1 EA UNK (Esomeprazole Mag Trihydrate [Nexium] 1 TAB) PO SCH (09:00)
[2020-04-26] MEDS ORDERED: PANTOPRAZOLE 40MG TABLET PO SCH (09:00)
[2020-04-26] MEDS ORDERED: lisinopriL 5 MG TAB PO SCH (09:00)
[2020-04-26] MEDS: DOCOSAHEXANOIC AC/EPA 1000 MG PO SCH (09:17)
[2020-04-26] MEDS: ASPIRIN EC 81 MG TAB PO SCH (09:17)
[2020-04-26] MEDS: CLOPIDOGREL 75 MG TABLET PO SCH (09:17)
[2020-04-26 09:41] VITALS: O2SAT 100
--- NOTE | 2020-04-26 09:48 | CON ---
Date of Consultation: 04/25/2020 Reason For Consultation: Non-ST elevation myocardial infarction. History Of Present Illness: Mr. Dela Cruz is a 59-year-old white male, who has had a history of CABG by Dr. Estevez at [facility]. He has also had a history of thoracic aortic aneurysm repair Dr. Sugey knox. He has a history of diabetes, hypertension, strong family history of heart disease. Came in wi th chest pain, ST depression, rapid atrial fibrillation, positive troponin of 0.79. He is now in sin us rhythm and asymptomatic and is awaiting going to the labor custodian for a heart catheterization with pos sible intervention. Past Medical History: As stated above. Allergies: NONE. Review of Systems: Negative. Social History: Negative. Family History: Positive for heart disease. Medications: Include aspirin, heparin, Lipitor, insulin, metoprolol, and Plavix. Physical Examination: General: He is pleasant, in no acute distress. Vital Signs: Stable, afebrile, sinus rhythm now. HEENT: Negative. Neck: Supple with no bruits. Chest: Clear. Cardiac Exam: Revealed a regular rhythm and rate. No murmurs, gallops, or rubs. Abdomen: Benign. Extremities: Revealed no clubbing, cyanosis, or edema. Diagnostic Data: As stated earlier. Impression And Plan: Non-ST elevation myocardial infarction in a patient with history of coronary ar latonya bypass graft and history of thoracic aortic aneurysm repair. We will continue his present regim en. We will hold his heparin and follow up with the labor custodian. Heart catheterization with possible i ntervention to the coronary anatomy will be done today. Patient understands the risks and the benefi ts of the procedure, and he agrees to proceed. His other problems including diabetes and hypertensio n appear to be stable at this point. He had one episode of atrial fibrillation when he came in, whic h may have been secondary to ischemia. In the long run, I still do not think we need to put him on a ny Eliquis or Xarelto. I think aspirin and Plavix in the long run would be a better choice for now. If he has any more atrial fibrillation, we will readdress that issue. Echocardiogram is also hillary FUNEZ/KEYANNA Voice ID: [id number] Report ID: [id number]
--- NOTE | 2020-04-26 13:48 | PN ---
Subjective: Mr. Dela Cruz was admitted on 04/25/2020 with a non-ST elevation myocardial infarction, was taken to the screedman/laborer yesterday by Dr. Ca rather urgently and underwent a catheterization, wh ich showed patent BEY to the LAD. He had a stent to the circumflex and OM yesterday and tolerated t he procedure well. He has no complications or blood loss that was significant yesterday. Overnight, he did well. He has no chest pain, shortness of breath. He denied PND, orthopnea, pedal edema, pal pitation, or syncope. Objective: Vital Signs: Stable. Afebrile. HEENT: Negative. Chest: Clear. Cardiac: Exam was normal. His right groin entry site was normal without any hematoma. He has good distal pulses in dorsalis pe dis and posterior tibial. Plan: The plan is to discharge Mr. Dela Cruz. His final diagnosis is CAD status post CABG. He has also had thoracic aortic aneurysm, status post repair by Dr. Estevez many years ago. There were no issu es in that region yesterday by angiography. The patient has done well. He had a BEY to the LAD raeann t is patent. He has new stent to the circ and OM. He has no symptoms today and he will be discharge d on his home medication plus Plavix and statin, and he will see me in the office in 2 weeks. DEE DEE/KEYANNA Voice ID: [id number] Report ID: [id number]
--- NOTE | 2020-04-29 07:36 | ECHO ---
HEIGHT: 6 ft 0 in WEIGHT: 247 lb 9.6 oz DATE OF STUDY: 04/26/[address]: Arya Keller NP 2-DIMENSIONAL: YES M.MODE: YES DOPPLER: YES COLOR FLOW: YES TDS: PORTABLE: DEFINITY: BUBBLE STUDY: DIAGNOSIS: NON ST ELEVATION MYOCARDIAL INFARCTION, ATRIAL FIBRILLATION CARDIAC HISTORY: CATHERIZATION: SURGERY: PROSTHETIC VALVE: PACEMAKER: MEASUREMENTS (cm) DIASTOLIC (NORMALS) SYSTOLIC (NORMALS) IVSd 1.0 (0.6-1.2) LA Diam 3.7 (1.9-4.0) LVEF 50% LVIDd 5.0 (3.5-5.7) LVIDs (2.0-3.5) %FS 26% LVPWd 1.0 (0.6-1.2) Ao Diam 4.3 (2.0-3.7) 2 DIMENSIONAL ASSESSMENT: RIGHT ATRIUM: NORMAL LEFT ATRIUM: NORMAL RIGHT VENTRICLE: NORMAL LEFT VENTRICLE: NORMAL TRICUSPID VALVE: NORMAL MITRAL VALVE: NORMAL PULMONIC VALVE: NORMAL AORTIC VALVE: NORMAL PERICARDIAL EFFUSION: NONE AORTIC ROOT: NORMAL LEFT VENTRICULAR WALL MOTION: NORMAL DOPPLER/COLOR FLOW: NORMAL COMMENTS: NORMAL LEFT VENTRICULAR SIZE AND FUNCTION. NO WALL MOTION ABNORMALITY. NO EFFUSION. TECHNOLOGIST: LUANNE MOREAU
== END 2020-04-26 09:44 | disposition home or self-care (01) | DRG 247 ==
LOC: ER 00:23 → ERHOLD 02:53 → 2ND 17:40
PROVIDERS: ADMIT Family Medicine; ATTEND Family Medicine
PROC: 027035Z Dilation of Coronary Artery, One Artery with Two Drug-eluting Intraluminal Devices, Percutaneous Approach (ICD-10-PCS; principal; 2020-04-25)
PROC: 4A023N7 Measurement of Cardiac Sampling and Pressure, Left Heart, Percutaneous Approach (ICD-10-PCS; 2020-04-25)
PROC: B2111ZZ Fluoroscopy of Multiple Coronary Arteries using Low Osmolar Contrast (ICD-10-PCS; 2020-04-25)
DX: I21.4 Non-ST elevation (NSTEMI) myocardial infarction (principal); N17.9 Acute kidney failure, unspecified; I10 Essential (primary) hypertension; K21.9 Gastro-esophageal reflux disease without esophagitis; I25.10 Atherosclerotic heart disease of native coronary artery without angina pectoris; E78.2 Mixed hyperlipidemia; E11.9 Type 2 diabetes mellitus without complications; I48.91 Unspecified atrial fibrillation; G47.33 Obstructive sleep apnea (adult) (pediatric); E66.9 Obesity, unspecified; Z68.33 Body mass index [BMI] 33.0-33.9, adult; Z90.49 Acquired absence of other specified parts of digestive tract; Z95.1 Presence of aortocoronary bypass graft; Z87.891 Personal history of nicotine dependence; Z79.82 Long term (current) use of aspirin; Z79.84 Long term (current) use of oral hypoglycemic drugs; Z79.02 Long term (current) use of antithrombotics/antiplatelets; Z79.899 Other long term (current) drug therapy; Z20.828 Contact with and (suspected) exposure to other viral communicable diseases
CPT/HCPCS: 36415; 71045; 80048; 80053; 80061; 80076; 82550; 82553; 82947; 83036; 83735; 83880; 84439; 84443; 84484; 85025; 85347; 85610; 85730; 92928; 92929; 93005; 93306; 93455; 99285; C1725; C1760; C1893; J1644; J2250; J2270; J2405; J3010; J7030; U0003

== ENCOUNTER 2020-12-09 18:30 | Emergency (ER) | payer OTHER ==
[2020-12-09 19:13] LABS: Protime INR 1.18
[2020-12-09 19:14] LABS: Absolute Lymphocytes (CBC) 2.7 K/uL (0.7-4.9); Basophils % 0.8 % (0-1.3); Hematocrit 47.2 % (39.6-49.0); MPV 8.1 fL (7.6-11.3); RBC Red Blood Cell Count 5.58 M/uL (4.33-5.43)
[2020-12-09] MEDS ORDERED: ASPIRIN 81 MG CHEWABLE TABLET ONE (19:14)
[2020-12-09] MEDS ORDERED: FENTANYL CITR 100 MCG/2 ML ONE ×2 (19:16→20:16)
[2020-12-09] MEDS ORDERED: METOPROLOL TARTRATE 5 MG/5 ML INJ IV ONE ×3 (19:16→19:45)
--- NOTE | 2020-12-09 19:20 | RAD REPORT ---
EXAM DESCRIPTION: RAD - Chest Single View - 12/09/2020 7:09 pm CLINICAL HISTORY: CHEST PAIN COMPARISON: Portable March 2020 TECHNIQUE: AP portable chest image was obtained 12/09/2020 7:09 pm . FINDINGS: Lungs are clear. Heart and vasculature are normal. No measurable pleural effusion and no p neumothorax. No acute bony abnormality seen. Sternotomy wires are in place. No acute aortic findings suspected. IMPRESSION: No acute cardiopulmonary process. No significant change from comparison study.
[2020-12-09 19:26] LABS: Bilirubin Direct 0.2 mg/dL (0-0.2); Bilirubin Total 0.8 mg/dL (0.2-1.0); Magnesium 2.2 mg/dL (1.8-2.4); Potassium 3.5 mmol/L (3.5-5.1); Protein, Total 8.6 g/dL (6.4-8.2)
[2020-12-09 19:27] LABS: Troponin (Emerg Dept Use Only) 4.08 ng/mL (0.0-0.045)
[2020-12-09] MEDS ORDERED: NA CHLORIDE 0.9% 500 ML ONE (19:30)
[2020-12-09] MEDS ORDERED: METOPROLOL TAR 50 MG TAB ONE (19:45)
[2020-12-09] MEDS ORDERED: HEPARIN 5000 UNIT/ML 1 ML VIAL ONE (20:03)
[2020-12-09] MEDS ORDERED: HEPARIN/D5W 25,000 UNIT/500 ML BAG IV ONE (20:03)
[2020-12-09] MEDS ORDERED: NA CHLORIDE 0.9% 1,000 ML ONE (20:06)
[2020-12-09] MEDS ORDERED: DIGOXIN 0.25 MG/ML AMP ONE (20:16)
[2020-12-09] MEDS ORDERED: AMIODARONE IN DEXTROSE,ISO-OSM 360 MG/200 ML BAG IV ONE ×2 (20:39→22:57)
[2020-12-09] MEDS ORDERED: MORPHINE 4 MG/ML SYR ONE ×2 (21:13→23:28)
--- NOTE | 2020-12-09 21:14 | ER ---
Nurse's Notes [facility] Name: Nixon Dela Cruz Age: 60 yrs Sex: Male : 1960 Arrival Date: 12/09/2020 Time: 18:33 Bed 3 Private MD: Diagnosis: Atrial fibrillation and flutter;Chest pain, unspecified Presentation: 12/09 18:35 Chief complaint: Patient states: Episode of chest pain, nausea, sweating, elevated BP ss and pulse that lasted "a while" yesterday evening and occurred again about 1 hour ago. Pt states, "It sound like AFIB, but I've never had an episode.". Coronavirus screen: Client denies travel out of the [place] in the last 14 days. Ebola Screen: Patient denies exposure to infectious person. Patient denies travel to an Ebola-affected area in the 21 days before illness onset. Initial Sepsis Screen: Does the patient meet any 2 criteria? HR > 90 bpm. Does the patient have a suspected source of infection? No. Patient's initial sepsis screen is negative. Risk Assessment: Do you want to hurt yourself or someone else? Patient reports no desire to harm self or others. Onset of symptoms was December 08, 2020. 18:35 Method Of Arrival: Ambulatory ss 18:35 Acuity: SNEHA 2 ss Historical: - Allergies: 18:40 No Known Allergies; ss - Home Meds: 18:58 metoprolol tartrate 25 mg oral tab once daily [Active]; metformin 1,000 mg oral tab 2 hb times per day [Active]; losartan-hydrochlorothiazide 50-12.5 mg oral tab once daily [Active]; clopidogrel 75 mg oral tab 1 tab once daily [Active]; Nexium 20 mg Oral cpDR 1 cap once daily [Active]; Nitrostat 0.3 mg SL subl 1 tab every 5 minutes [Active]; - PMHx: 18:40 abdominal aortic aneurysm; Diabetes - NIDDM; Diverticulitis; Hypertension; ss - PSHx: 18:40 CABG; Cholecystectomy; Cardiac Stent; ss - Immunization history:: Adult Immunizations up to date. - Social history:: Smoking status: Patient denies any tobacco usage or history of. Screenin:59 Abuse screen: Denies threats or abuse. Denies injuries from another. Nutritional hb screening: No deficits noted. Tuberculosis screening: No symptoms or risk factors identified. Fall Risk None identified. Assessment: 18:58 General: Appears in no apparent distress. Behavior is calm, cooperative. Pain: hb Complains of pain in chest Pain currently is 8 out of 10 on a pain scale. Neuro: Level of Consciousness is awake, alert, obeys commands, Oriented to person, place, time, situation. Cardiovascular: Patient's skin is warm and dry. Rhythm is tachy 150s. Respiratory: Reports shortness of breath on exertion Respiratory effort is even, unlabored, Respiratory pattern is regular, symmetrical. GI: No signs and/or symptoms were reported involving the gastrointestinal system. : No signs and/or symptoms were reported regarding the genitourinary system. EENT: No signs and/or symptoms were reported regarding the EENT system. Derm: Skin is pink, warm \\T\\ dry. Musculoskeletal: No signs and/or symptoms reported regarding the musculoskeletal system. 19:20 Reassessment: Pt is awake alert and oriented x4. Denies pain at this time. Respirations jb4 are even and unlabored. HR is unaffected by first and second doses of Lopressor. Provider is aware, see [facility] for orders. 20:39 Reassessment: Pt hear rate has decreased. Provider at the bed side updating pt on POC. jb4 respirations are even and unlabored. Denies chest pain at this time. No s/s of distress noted. 20:55 Reassessment: Pt continues to report a piercing pain behind the heart radiating from jb4 the back to the chest. Provider notified, see [facility] for orders. 21:30 Reassessment: Patient appears in no apparent distress at this time. Patient and/or jb4 family updated on plan of care and expected duration. Pain level reassessed. Patient is alert, oriented x 3, equal unlabored respirations, skin warm/dry/pink. Patient denies pain at this time. 22:30 Reassessment: Patient appears in no apparent distress at this time. Patient and/or jb4 family updated on plan of care and expected duration. Pain level reassessed. Patient is alert, oriented x 3, equal unlabored respirations, skin warm/dry/pink. Patient denies pain at this time. 22:59 Reassessment: report called to KELLY Dalton at [facility]. jb4 23:32 Reassessment: Patient appears in no apparent distress at this time. Patient and/or jb4 family updated on plan of care and expected duration. Pain level reassessed. Patient is alert, oriented x 3, equal unlabored respirations, skin warm/dry/pink. Report given to EMS. Pt transferred to Receiving facility via ambulance. IV's infusing without complications, sites remain patent, clean, dry, and intact. Vital Signs: 18:35 BP 154 / 98; Pulse 154; Resp 20; Pulse Ox 98% on R/A; Weight 111.13 kg; Height 6 ft. 0 ss in. (182.88 cm); Pain 8/10; 18:40 BP 124 / 98; ss 19:08 BP 108 / 88; Pulse 139; ph 19:30 Weight 113.3 kg (M); jb4 20:38 BP 127 / 99; Pulse 126; Resp 19; Temp 98.7(O); Pulse Ox 96% on R/A; jb4 22:30 BP 124 / 74; Pulse 106; Resp 18; Pulse Ox 97% on R/A; Pain 0/10; jb4 23:15 BP 109 / 85; Pulse 87; Resp 21; Pulse Ox 95% on R/A; jb4 19:30 Body Mass Index 33.88 (113.30 kg, 182.88 cm) jb4 ED Course: 18:33 Patient arrived in ED. mr 18:39 Triage completed. ss 18:40 Jordy Prado PA is PHCP. cp 18:40 Jordy Champagne MD is Attending Physician. cp 18:40 Arm band placed on right wrist. ss 18:54 Inserted saline lock: 20 gauge in right antecubital area, using aseptic technique. hb Blood collected. 18:54 Patient maintains SpO2 saturation greater than 95% on room air. hb 18:56 Felicity Ornelas, KELLY is Primary Nurse. hb 18:59 Patient has correct armband on for positive identification. Bed in low position. Call hb light in reach. 19:09 XRAY Chest (1 view) In Process Unspecified. EDMS 19:28 Notified Nurse Practitioner and/or Physician Software Firmware Engineer of a critical lab result(s), bb troponin of 4.08 Jordy HAYS notified. 20:48 Initiated transfer to [facility] spoke with Anne. ar5 21:27 [facility] declined transfer due to being at capacity. ar5 21:29 Initiated transfer to [facility] spoke with Ainsley. ar5 21:37 Primary Nurse role handed off by Felicity Ornelas, KELLY jb4 21:37 Khris Traore, RN is Primary Nurse. jb4 21:58 Initiated transfer to [facility] spoke with Melvina. ar5 22:00 Initiated transfer to [facility] spoke with Prabha. ar5 22:04 [facility] declined transfer due to being at capacity. ar5 22:[address] [facility] declined transfer due to being at capacity. ar5 22:15 Adel[place] done with Jordy HAYS. ar5 22:21 Patient Accepted to go to [facility] by Prabha Rodriguez. Accepting Dr. is Dr. Foote ar5 Larry. Patient going to ICU [facility] 8A Rm: 804. Call report to Fax MOT [phone]. 22:55 Called [facility] to transport pt. they will be 30 minutes. ar5 23:34 No provider procedures requiring assistance completed. Patient transferred, IV remains jb4 in place. Administered Medications: 19:00 Drug: Lopressor (metoprolol) 5 mg Route: IVP; Site: right antecubital; ph 19:30 Follow up: Response: No adverse reaction jb4 19:01 Drug: Aspirin Chewable Tablet 324 mg Route: PO; hb 19:30 Follow up: Response: No adverse reaction jb4 19:03 Drug: fentaNYL (PF) 25 mcg Route: IVP; Site: right antecubital; ph 19:30 Follow up: Response: No adverse reaction; Marked relief of symptoms; Pain is decreased jb4 19:16 Drug: NS 0.9% 500 ml Route: IV; Rate: bolus; Site: right antecubital; ph 20:00 Follow up: Response: No adverse reaction; IV Status: Completed infusion; IV Intake: jb4 500ml 19:17 Drug: Lopressor (metoprolol) 5 mg Route: IVP; Site: right antecubital; ph 19:45 Follow up: Response: No adverse reaction jb4 19:30 Drug: Lopressor (metoprolol TARTRATE) 50 mg Route: PO; jb4 20:00 Follow up: Response: No adverse reaction jb4 19:30 Drug: Lopressor (metoprolol) 5 mg Route: IVP; Site: right antecubital; jb4 20:00 Follow up: Response: No adverse reaction jb4 19:50 Drug: Heparin ([place]-Bolus No thrombolytic) - HEParin 60 units/kg {Co-Signature: jm8 jb4 (Timothy Henson RN).} Route: IVP; Site: right antecubital; 20:20 Follow up: Response: No adverse reaction 4 19:50 Drug: Heparin ([place] Drip) 12 units/kg/hr - (HEParin 65878 units, D5W 500 ml) jb4 {Co-Signature: jm8 (Timothy Henson RN).} Route: IV; Rate: calculated rate; Site: right hand; 23:24 Follow up: Response: No adverse reaction; IV Status: Infusion continued upon transfer jb4 20:05 Drug: Digoxin 0.5 mg Route: IVP; Site: right hand; jb4 20:30 Follow up: Response: No adverse reaction 4 20:07 Drug: fentaNYL (PF) 25 mcg Route: IVP; Site: right hand; jb4 20:30 Follow up: Response: No adverse reaction jb4 20:25 Drug: amiodarone 150 mg Volume: 100 ml; Route: IVPB; Infused Over: 10 mins; Site: right jb4 hand; 20:37 Follow up: Response: No adverse reaction; Marked relief of symptoms; IV Status: jb4 Completed infusion 20:35 Drug: amiodarone 900 mg, D5W 500 ml Route: IVPB; Rate: 1 mg/min; Site: right hand; jb4 23:24 Follow up: Response: No adverse reaction; IV Status: Infusion continued upon transfer jb4 20:58 Drug: morphine 4 mg Route: IVP; Site: right hand; jb4 21:20 Follow up: Response: No adverse reaction; Marked relief of symptoms; Pain is decreased; jb4 RASS: Alert and Calm (0) 23:20 Drug: morphine 4 mg Route: IVP; Site: right hand; jb4 23:26 Follow up: Response: No adverse reaction; Marked relief of symptoms; Pain is decreased; jb4 RASS: Alert and Calm (0) Intake: 20:00 IV: 500ml; Total: 500ml. 4 Outcome: 21:14 ER care complete, transfer ordered by MD. lin 23:34 Transferred by ground EMS [facility] to [facility], Transfer form jb4 completed. X-rays sent w/ patient. 23:34 Condition: improved 23:34 Discharge instructions given to patient, Instructed on the need for transfer, Demonstrated understanding of instructions. 23:34 Patient left the ED. jb4 Signatures: Dispatcher [employer] Elvia OttSandra, RN RN bb Nidhi Melton, RN RN ss Mague Cooper RN RN Jordy Whaley PA PA cp Baxter, Heather, RN RN Khris Thrasher RN RN jb4 Razia Rehman arJosue Henson RN jm8 Corrections: (The following items were deleted from the chart) 23:49 21:27 Declined transfer due to being at capacity ar5 ar5 23:49 22:04 Declined transfer due to being at capacity ar5 ar5 23:50 22:05 Declined transfer due to being at capacity ar5 ar5 23:56 22:21 Adelso done with Jordy HAYS [facility] ar 23:56 22:55 Patient Accepted to go to [facility] by Prabha Rodriguez. Accepting DrHuma is Dr. Dary Corcoran. Patient going to ICU [facility] 8A Rm: 804. Call report to Fax MOT ar 23:56 22:55 Called [facility] to transport pt. they will be minutes. ar ar5
--- NOTE | 2020-12-09 21:15 | EDPHYS ---
Physician Documentation [facility] Name: Nixon Dela Cruz Age: 60 yrs Sex: Male : 1960 Arrival Date: 12/09/2020 Time: 18:33 Bed 3 Private MD: ED Physician Jordy Champagne HPI: 12/09 18:55 This 60 yrs old Male presents to ER via Ambulatory with complaints of Chest cp Pain. 18:55 The patient or guardian reports chest pain that is located primarily in the substernal cp area. 18:55 Onset: yesterday. The pain radiates to back. Associated signs and symptoms: Pertinent cp positives: palpitations, Pertinent negatives: abdominal pain, lower extremity pain, lower extremity swelling, shortness of breath, syncope. The chest pain is described as a pressure. Duration: The patient or guardian reports multiple episodes, that wax and wane. Historical: - Allergies: 18:40 No Known Allergies; ss - Home Meds: 18:58 metoprolol tartrate 25 mg oral tab once daily [Active]; metformin 1,000 mg oral tab 2 hb times per day [Active]; losartan-hydrochlorothiazide 50-12.5 mg oral tab once daily [Active]; clopidogrel 75 mg oral tab 1 tab once daily [Active]; Nexium 20 mg Oral cpDR 1 cap once daily [Active]; Nitrostat 0.3 mg SL subl 1 tab every 5 minutes [Active]; - PMHx: 18:40 abdominal aortic aneurysm; Diabetes - NIDDM; Diverticulitis; Hypertension; ss - PSHx: 18:40 CABG; Cholecystectomy; Cardiac Stent; ss - Immunization history:: Adult Immunizations up to date. - Social history:: Smoking status: Patient denies any tobacco usage or history of. ROS: 18:55 Constitutional: Negative for body aches, chills, fever, poor PO intake. cp 18:55 Eyes: Negative for injury, pain, redness, and discharge. cp 18:55 ENT: Negative for ear pain, sore throat, difficulty swallowing, difficulty handling secretions. 18:55 Cardiovascular: Positive for chest pain, palpitations, Negative for edema. 18:55 Respiratory: Negative for cough, shortness of breath, wheezing. 18:55 Abdomen/GI: Negative for abdominal pain, nausea, vomiting, and diarrhea. 18:55 Back: Positive for radiated pain, of the between shoulder blades. 18:55 Skin: Negative for rash. 18:55 Neuro: Negative for altered mental status, headache, syncope, weakness. 18:55 All other systems are negative. Exam: 18:55 ECG was reviewed by the Attending Physician. cp 19:00 Constitutional: The patient appears in no acute distress, alert, awake, cp non-diaphoretic, non-toxic, well developed, well nourished, obese. 19:00 Head/Face: Normocephalic, atraumatic. cp 19:00 Eyes: Periorbital structures: appear normal, Conjunctiva: normal, no exudate, no injection, Sclera: no appreciated abnormality, Lids and lashes: appear normal, bilaterally. 19:00 ENT: External ear(s): are unremarkable, Nose: is normal, Posterior pharynx: Airway: no evidence of obstruction, patent. 19:00 Neck: ROM/movement: is normal, is supple, without pain, no range of motions limitations. 19:00 Chest/axilla: Inspection: normal, Palpation: is normal, no crepitus, no tenderness. 19:00 Cardiovascular: Rate: tachycardic, Rhythm: regular, Edema: is not appreciated, JVD: is not appreciated. 19:00 Respiratory: the patient does not display signs of respiratory distress, Respirations: normal, no use of accessory muscles, no retractions, labored breathing, is not present, Breath sounds: are clear throughout, no decreased breath sounds, no stridor, no wheezing. 19:00 Abdomen/GI: Inspection: abdomen appears normal, Bowel sounds: active, all quadrants, Palpation: abdomen is soft and non-tender, in all quadrants. 19:00 Back: pain, that is mild, of the between shoulder blades, ROM is normal. 19:00 Skin: no rash present. 19:00 Neuro: Orientation: to person, place \T\ time. Mentation: is normal, Cerebellar function: is grossly normal, Motor: moves all fours, strength is normal, Sensation: is normal. 19:35 ECG was reviewed by the Attending Physician. cp 21:05 ECG was reviewed by the Attending Physician. cp Vital Signs: 18:35 BP 154 / 98; Pulse 154; Resp 20; Pulse Ox 98% on R/A; Weight 111.13 kg; Height 6 ft. 0 ss in. (182.88 cm); Pain 8/10; 18:40 BP 124 / 98; ss 19:08 BP 108 / 88; Pulse 139; ph 19:30 Weight 113.3 kg (M); jb4 20:38 BP 127 / 99; Pulse 126; Resp 19; Temp 98.7(O); Pulse Ox 96% on R/A; jb4 22:30 BP 124 / 74; Pulse 106; Resp 18; Pulse Ox 97% on R/A; Pain 0/10; jb4 23:15 BP 109 / 85; Pulse 87; Resp 21; Pulse Ox 95% on R/A; jb4 19:30 Body Mass Index 33.88 (113.30 kg, 182.88 cm) jb4 MDM: 18:44 Patient medically screened. cp 21:15 Data reviewed: vital signs, nurses notes, lab test result(s), EKG, radiologic studies, cp plain films, I have discussed the patient's presentation/case with the attending Emergency Department Physician;. 12/09 18:44 Order name: Basic Metabolic Panel; Complete Time: 19:29 cp 12/09 21:13 Interpretation: Normal except: NA 135; GLUC 190; BUN 20; GFR 58. cp 12/09 18:44 Order name: CBC with Diff; Complete Time: 19:21 cp 12/09 19:21 Interpretation: Normal except: WBC 14.20; RBC 5.58; NEUT A 10.0. cp 12/09 18:44 Order name: LFT's; Complete Time: 19:29 cp 12/09 18:44 Order name: Magnesium; Complete Time: 19:29 cp 12/09 18:44 Order name: NT PRO-BNP; Complete Time: 19:29 cp 12/09 21:13 Interpretation: Abnormal: NT PRO-BNP 1048. cp 12/09 18:44 Order name: PT-INR; Complete Time: 19:21 cp 12/09 18:44 Order name: Troponin (emerg Dept Use Only); Complete Time: 19:29 cp 12/09 21:13 Interpretation: Abnormal: TROPED 4.08. cp 12/09 18:44 Order name: XRAY Chest (1 view); Complete Time: 19:27 cp 12/09 20:09 Order name: Ptt, Activated; Complete Time: 21:12 4 12/09 21:12 Interpretation: Abnormal: PTT 168.1. cp 12/09 21:29 Order name: SARS-COV-2 RT PCR; Complete Time: 21:32 EDMS 12/09 18:44 Order name: EKG; Complete Time: 18:45 cp 12/09 18:44 Order name: Cardiac monitoring; Complete Time: 18:51 cp 12/09 18:44 Order name: EKG - Nurse/Tech; Complete Time: 18:51 cp 12/09 18:45 Order name: IV Saline Lock; Complete Time: 18:51 cp 12/09 18:45 Order name: Labs collected and sent; Complete Time: 18:51 cp 12/09 18:45 Order name: O2 Per Protocol; Complete Time: 18:51 cp 12/09 18:45 Order name: O2 Sat Monitoring; Complete Time: 18:51 cp EC:55 Rate is 153 beats/min. Rhythm is regular. MO interval is normal. QRS interval is cp prolonged at 104 msec. QT interval is normal. Interpreted by me. Reviewed by me. 19:35 Rate is 137 beats/min. Rhythm is regular. QRS interval is prolonged at 104 msec. QT cp interval is normal. T waves are Inverted in leads III, aVR. Interpreted by me. Reviewed by me. 21:05 Rate is 104 beats/min. Rhythm is irregular. QRS interval is normal. QT interval is cp normal. T waves are Inverted in leads III, aVR. Interpreted by me. Reviewed by me. Administered Medications: 19:00 Drug: Lopressor (metoprolol) 5 mg Route: IVP; Site: right antecubital; ph 19:30 Follow up: Response: No adverse reaction jb4 19:01 Drug: Aspirin Chewable Tablet 324 mg Route: PO; hb 19:30 Follow up: Response: No adverse reaction jb4 19:03 Drug: fentaNYL (PF) 25 mcg Route: IVP; Site: right antecubital; ph 19:30 Follow up: Response: No adverse reaction; Marked relief of symptoms; Pain is decreased jb4 19:16 Drug: NS 0.9% 500 ml Route: IV; Rate: bolus; Site: right antecubital; ph 20:00 Follow up: Response: No adverse reaction; IV Status: Completed infusion; IV Intake: jb4 500ml 19:17 Drug: Lopressor (metoprolol) 5 mg Route: IVP; Site: right antecubital; ph 19:45 Follow up: Response: No adverse reaction jb4 19:30 Drug: Lopressor (metoprolol TARTRATE) 50 mg Route: PO; jb4 20:00 Follow up: Response: No adverse reaction jb4 19:30 Drug: Lopressor (metoprolol) 5 mg Route: IVP; Site: right antecubital; jb4 20:00 Follow up: Response: No adverse reaction jb4 19:50 Drug: Heparin ([place]-Bolus No thrombolytic) - HEParin 60 units/kg {Co-Signature: maged [email or web address] (Timothy Henson RN).} Route: IVP; Site: right antecubital; 20:20 Follow up: Response: No adverse reaction jb4 19:50 Drug: Heparin ([place] Drip) 12 units/kg/hr - (HEParin 63394 units, D5W 500 ml) jb4 {Co-Signature: jm8 (Timothy Henson RN).} Route: IV; Rate: calculated rate; Site: right hand; 23:24 Follow up: Response: No adverse reaction; IV Status: Infusion continued upon transfer jb4 20:05 Drug: Digoxin 0.5 mg Route: IVP; Site: right hand; jb4 20:30 Follow up: Response: No adverse reaction jb4 20:07 Drug: fentaNYL (PF) 25 mcg Route: IVP; Site: right hand; jb4 20:30 Follow up: Response: No adverse reaction jb4 20:25 Drug: amiodarone 150 mg Volume: 100 ml; Route: IVPB; Infused Over: 10 mins; Site: right jb4 hand; 20:37 Follow up: Response: No adverse reaction; Marked relief of symptoms; IV Status: jb4 Completed infusion 20:35 Drug: amiodarone 900 mg, D5W 500 ml Route: IVPB; Rate: 1 mg/min; Site: right hand; jb4 23:24 Follow up: Response: No adverse reaction; IV Status: Infusion continued upon transfer jb4 20:58 Drug: morphine 4 mg Route: IVP; Site: right hand; jb4 21:20 Follow up: Response: No adverse reaction; Marked relief of symptoms; Pain is decreased; 4 RASS: Alert and Calm (0) 23:20 Drug: morphine 4 mg Route: IVP; Site: right hand; jb4 23:26 Follow up: Response: No adverse reaction; Marked relief of symptoms; Pain is decreased; jb4 RASS: Alert and Calm (0) Disposition: 12/10 07:18 Co-signature as Attending Physician, Jordy Champagne MD I agree with the assessment and [facility] plan of care. Disposition: 12/09/20 21:14 Transfer ordered to [facility]. Diagnosis are Atrial fibrillation and flutter, Chest pain, unspecified. - Reason for transfer: Higher level of care. - Accepting physician is DR Gregg. - Condition is Serious. - Problem is new. - Symptoms have improved. Signatures: Dispatcher [employer] EDOK Jordy Champagne MD MD cha Smirch, Shelby, RN RN ss Mague Cooper RN RN Jordy Prado PA PA cp Felicity Ornelas, KELLY MENDOZA Khris Traore RN RN jb4 Timothy Henson RN jm8 Corrections: (The following items were deleted from the chart) 12/09 20:29 19:32 CORONAVIRUS+MR.LAB.BRZ ordered. [facility] EDOK 22:40 21:14 12/09/2020 21:14 Transfer ordered to [facility]. Diagnosis is Atrial cp fibrillation and flutter; Chest pain, unspecified. Reason for transfer: Higher level of care. Accepting physician is Doctor. Condition is Serious. Problem is new. Symptoms have improved. cp 22:40 22:40 12/09/2020 21:14 Transfer ordered to [facility]. Diagnosis is Atrial cp fibrillation and flutter; Chest pain, unspecified. Reason for transfer: Higher level of care. Accepting physician is DR Gregg. Condition is Serious. Problem is new. Symptoms have improved. cp 23:34 22:40 12/09/2020 21:14 Transfer ordered to [facility]. Diagnosis is Atrial jb4 fibrillation and flutter; Chest pain, unspecified. Reason for transfer: Higher level of care. Accepting physician is DR Gregg. Condition is Serious. Problem is new. Symptoms have improved. cp
[2020-12-09] MEDS ORDERED: MIDAZOLAM HCL 2 MG/2 ML INJ ONE (21:21)
[2020-12-09 23:51] VITALS: TEMP 98.7
[2020-12-09 23:54] VITALS: BP 109/85; O2SAT 95
--- NOTE | 2020-12-10 10:27 | EKG ---
Test Date: 2020-12-09 Test Time: 19:31:32 Roller Helper: TRISTEN MEASUREMENT RESULTS: Intervals: Rate: 137 SD: QRSD: 104 QT: 338 QTc: 510 [place]: P: SD: QRS: 21 T: -30 INTERPRETIVE STATEMENTS: Supraventricular tachycardia Minimal voltage criteria for LVH, may be normal variant Inferior infarct, age undetermined Abnormal ECG Compared to ECG 12/09/2020 18:49:10 Left ventricular hypertrophy now present Sinus tachycardia no longer present ST (T wave) deviation no longer present Myocardial infarct finding still present Electronically Signed On 12-10-20 10:25:41 CDT by Taurus Kay
--- NOTE | 2020-12-10 10:27 | EKG ---
Test Date: 2020-12-09 Test Time: 21:02:02 Animal Cop: EDWIGE MEASUREMENT RESULTS: Intervals: Rate: 104 [place]: QRSD: 98 QT: 342 QTc: 449 [place]: P: VT: QRS: 37 T: 7 INTERPRETIVE STATEMENTS: Atrial fibrillation with rapid ventricular response Possible Inferior infarct, age undetermined Abnormal ECG Compared to ECG 12/09/2020 19:31:32 Supraventricular tachycardia no longer present Left ventricular hypertrophy no longer present Myocardial infarct finding still present Electronically Signed On 12-10-20 10:25:37 CDT by Taurus Kay
--- NOTE | 2020-12-10 10:27 | EKG ---
Test Date: 2020-12-09 Test Time: 18:49:10 Network Planner: TRISTEN MEASUREMENT RESULTS: Intervals: Rate: 153 [place]: 130 QRSD: 104 QT: 318 QTc: 507 [place]: P: [place]: 130 QRS: 28 T: 269 INTERPRETIVE STATEMENTS: Sinus tachycardia Inferior-posterior infarct, possibly acute Marked ST abnormality, possible lateral subendocardial injury ACUTE RI / STEMI Consider right ventricular involvement in acute inferior infarct Abnormal ECG Compared to ECG 04/25/2020 01:35:16 ST (T wave) deviation now present Sinus bradycardia no longer present Sinus arrhythmia no longer present Left ventricular hypertrophy no longer present Myocardial infarct finding still present Electronically Signed On 12-10-20 10:25:42 CDT by Taurus Kay
== END 2020-12-09 23:34 | disposition short-term general hospital (02) ==
LOC: ER 18:30
DX: I48.91 Unspecified atrial fibrillation (principal); I48.92 Unspecified atrial flutter; E11.9 Type 2 diabetes mellitus without complications; I10 Essential (primary) hypertension; Z20.822 Contact with and (suspected) exposure to COVID-19; Z95.1 Presence of aortocoronary bypass graft; Z95.818 Presence of other cardiac implants and grafts
CPT/HCPCS: 93005 ×3; 85025; 80048; 36415; 83735; 85610; 80076; 85730; 84484; 83880; 71045; U0003; J1160; J1644 ×2; J3010 ×2; J0282 ×2; J7040; J7030; 99285; J2250